=== PATIENT | female | born 1945 | race Caucasian/White ===

== ENCOUNTER 2016-06-06 10:42 | Outpatient (CLI) ==
[2016-06-06 11:08] LABS: CREATININE 0.67 mg/dL (0.60-1.30)
== END 2016-06-06 10:43 | disposition home or self-care (01) ==
LOC: RAD 10:42
PROVIDERS: ATTEND Internal Medicine Gastroenterology
DX: R93.2 Abnormal findings on diagnostic imaging of liver and biliary tract (principal)
CPT/HCPCS: 36415; 82565

== ENCOUNTER 2016-06-07 07:07 | Outpatient (CLI) ==
--- NOTE | 2016-06-07 09:30 | MRI ---
EXAM: MRI abdomen without and with contrast HISTORY: Abnormal ultrasound TECHNIQUE: Multiplanar, multisequence without and following the administration of intravenous Omnis can, 9 mL using a dynamic contrast enhanced hepatic protocol. COMPARISON: Abdominal sonogram from 04/26/2016 FINDINGS: The heart is incompletely imaged. No pericardial or pleural effusions are evident. No h iatus hernia is appreciated. There is no evidence of hepatic steatosis. There is susceptibility artifact in the epigastric regio n and right upper quadrant ventral abdominal wall soft tissues. There is a small lesion in the righ t posterior hepatic lobe measuring 12.6 mm. This has decreased T1 signal and increased T2 signal. The lesion has rapid arterial enhancement that persists on delayed images. No other hepatic lesions are appreciated. The portal and hepatic veins are patent. The gallbladder is surgically absent. N o intrahepatic biliary dilatation is appreciated. The common bile duct is dilated to 10.5 mm. The pancreas and adrenal glands are grossly normal. The spleen has normal size and signal intensity. A simple cyst is noted at the interpolar region of the right kidney. The kidneys are otherwise jose david l. The visible intestines have normal signal caliber. The abdominal aorta has normal caliber and f low signal. The gallbladder is surgically absent. There is no biliary dilatation. The bone marrow signal intensity is maintained. IMPRESSION: 1. Hepatic hemangioma, right posterior hepatic lobe corresponding to the lesion on ultrasound. 2. Simple cyst, interpolar region of the right kidney. 3. Postsurgical changes in the ventral abdominal wall. 4. Previous cholecystectomy with extrahepatic biliary dilatation.
== END 2016-06-07 07:08 | disposition home or self-care (01) ==
LOC: RAD 07:07
PROVIDERS: ATTEND Internal Medicine Gastroenterology
DX: R93.2 Abnormal findings on diagnostic imaging of liver and biliary tract (principal)

== ENCOUNTER 2016-06-16 09:00 | Outpatient (RCR) ==
--- NOTE | 2016-05-31 13:08 | RS.OPPTEV2 ---
Date of Note: 05/31/16 Visit #: 1 Date of Evaluation: 05/31/16 Payer Source: MEDICARE Date of Onset/Injury/Change in Status: 04/30/16 Surgery Performed?: No Treatment Diagnosis: Neck pain History of Condition/Mechanism of Injury:: Injury to the neck ~ 11 yrs ago and had cervical fusion of C4-C5. She has done very well wthout limitation until a month ago when she had loss of sensation of B hands L > R. The sensation loss is in the tips of her fingers on the right and the entire palmar surface of the left hand in all digits. She has started dropping things and having difficulty with many tasks. She is having neck pain right side greater than left which is mainly occurring at night causing difficulty sleeping due to the pain. She awakens due to pain 2-3 X/night. Driving is also an activity that causes neck pain to begin. Prior Level of Function.....Patient was independent with: ADL's, Self Care, Work /Vocation, Caregiving, Ambulation/Mobility, Community Integration/Access Functional Limitations: Sleep, Self Care, ADL's, Lifting, Carrying Current Subjective/complaints:: I do not know what cuased this to happen but I had a terrible April 2016. I had the flu terribly for 2 wks after geting the flu shot. The next wk I had sinusitus and bronchitis with a great deal of coughing. Following that I had jaw pain adn had to have 6 teeth pulled due to severe infection in my jaw. She had 3 courses of antibiotics in the month of April. Treatment Side (optional): Bilateral Medical History Medical History: Hypertension, Arthritis, Other Medical History Comments:: Chronic anemic Surgical History: Cholecystectomy Surgical History Comments:: ACF C4-C5 ~ 11 yrs ago, Cardiac stents and left carotid endarterectomy with stent placement ~ 7-8 yrs ago. Smoking Status: Current every day smoker Pain Assessment - Pain Description Pain Location: Neck pain on right Pain Description: Aching, Acute Pain Description: Deep ache Current Pain Intensity: 0/10 Worst Pain Intensity: 8/10 Other Comments regarding Pain:: Pain is usually when sleeping and/or driving. Functional Outcome Measure Neck Disability Index: 13 (26% disability) - G Codes & Severity Modifier G Codes & Modifier: Current - Carrying, Moving & Handling Objects - CJ. Goal - CI Source of G Code score: Neck Disability Index Observation - Observation Posture: Rounded Shoulders Handedness: Right General Muscle Strength: RUE 4+/5. LUE 4-/5 - Strength Cervical Extension: 5 Normal Cervical Flexion: 4+ Good + Cervical Lateral Flexion: 4- Good- - Special Tests Foraminal Distraction: Negative Foraminal Compression: Negative Left, Negative Right Wrist ROM: Bilaterally WFL's Wrist Muscle Strength: Bilaterally WFL's - Special Tests Tinel Test: Negative Left Phalen's Test: Negative Left Image Scientist Strength Left Hand Image Scientist Strength: 30# Right Hand Image Scientist Strength: 35# Palpation Palpation Findings: None/Normal Sensation - Sensation Right Upper Extremity: Impaired (Shooting electircal sensations of B arms and in the thoracic spine occasionally iwth roational motions.) Left Upper Extremity: Impaired Sensation Description: Numbness Coordination - Tests Bilateral Finger to Nose: Normal/Intact Interventions - Exercise/Activities/Manual Therapy Exercises/Activities: NA Manual Therapy: NA - Charges Total Direct Minutes: 45 Total Treatment Time: 45 Procedures billed for this date of service:: PT Eval Assessment Assessment: Progressive BUE weakening and loss of sensation in the hands. LUE weakness and B quality associate strength weakness. Her sleep and ability to perform daily tasks are being compromised. Patient Education: Education of diagnosis, Body/Joint mechanics, Activity Modification, Education of Plan of Care Rehab Potential: Good Short Term Goals Goal #1: Patient is able to sleep 50% better from decreased pain Goal to be met by: 06/17/16 Goal #2: LUE strength 4/5 Goal to be met by: 06/17/16 Goal #3: Patient reports minimal return of sensation B hands Goal to be met by: 06/17/16 Goal #4: Patient is able to button clothes with min diffiuclty. Goal to be met by: 06/17/16 Correction Goals Goal #1: LUE strength 4+/5 Goal to be met by: 07/01/16 Goal #2: Increase B quality associate strength 10# each Goal to be met by: 07/01/16 Goal #3: Eliminate cervical pain complaints. Goal to be met by: 07/01/16 Goal #4: Independent with HEP Goal to be met by: 07/01/16 Plan - Treatment to be Provided Procedures: Therapeutic Exercises, Therapeutic Activity, Manual Therapy, Massage , Patient Education Modalities: Electrical Stimulation, Ultrasound/Phonophoresis, Class IV Laser, Cryotherapy, Hot Packs - Treatment Plan Frequency: 3 X week Duration: 4 weeks ORDER # VISITS AND/OR THROUGH DATE: 07/01/2016 - Treatment Code (1) Cervical radicular pain Comments: M54.12
--- NOTE | 2016-06-07 15:25 | RS.OPPTDN ---
Subjective Date of Note: 06/07/16 Visit #: 2 Date of Evaluation: 05/31/16 Payer Source: MEDICARE Treatment Diagnosis: Neck pain Current Subjective/complaints:: Patient says she does not have much neck pain, but has tingling to all fingers and has trouble with linoleum mechanic. Pain Assessment - Pain Description Pain Location: Neck pain on right Pain Description: Aching, Acute Pain Description: Deep ache Current Pain Intensity: 0/10 - Treatment Modality: Ultrasound Parameters/Method Applied: 0.4 w/cm2 x 10 mins bilateral cervical Ut (non- thermal due to ACF) Patient Position: Sitting - Heat/Cryotherapy Treatment: Hot Pack (15 mins cervical in sitting) Interventions - Exercise/Activities/Manual Therapy Exercises/Activities: NA Manual Therapy: Patient receives MT of STM and trigger work to bilateral UT. Patient also receives PROM/gentle stretching to SB and rotation. She performs shoulder shrugs and scap retraction. Total minutes of Manual Therapy: 16 - Charges Total Direct Minutes: 26 Total Treatment Time: 41 Procedures billed for this date of service:: hp, u/s, MT Assessment: Patient admits no real cervical pain, but radicular symptoms to both hands of tingling/numbness/and weakness. Luz Maria has a few trigger points to the bilateral UT, mostly R sided. She may benefit from manual cervical traction and hand strengthening. She admitted improved flexibility following today's session. Patient Education: Education of diagnosis, Body/Joint mechanics, Home Exercise Program, Home Safety, Activity Modification, Education of Plan of Care Short Term Goals Goal #1: Patient is able to sleep 50% better from decreased pain Goal to be met by: 06/17/16 Goal #2: LUE strength 4/5 Goal to be met by: 06/17/16 Goal #3: Patient reports minimal return of sensation B hands Goal to be met by: 06/17/16 Goal #4: Patient is able to button clothes with min diffiuclty. Goal to be met by: 06/17/16 [place] Guide Goals Goal #1: LUE strength 4+/5 Goal to be met by: 07/01/16 Goal #2: Increase B linoleum mechanic strength 10# each Goal to be met by: 07/01/16 Goal #3: Eliminate cervical pain complaints. Goal to be met by: 07/01/16 Goal #4: Independent with HEP Goal to be met by: 07/01/16 Plan PLAN OF CARE EXPIRES ON:: 07/01/16 ORDER # VISITS AND/OR THROUGH DATE: 07/01/2016 PLAN: Continue Plan of Care
--- NOTE | 2016-06-13 10:31 | RS.OPPTDN ---
Subjective Date of Note: 06/13/16 Visit #: 4 Date of Evaluation: 05/31/16 Payer Source: MEDICARE Treatment Diagnosis: Neck pain Current Subjective/complaints:: Patient states she cannot tell a difference yet in her pain. She says that she feels she is more tender to the L side of her neck than last week. She says she does have difficulty sleeping. She is a stomach and side sleeper and awakens many times due to pain. Pain Assessment - Pain Description Pain Location: Neck pain on right Pain Description: Aching, Acute Pain Description: Deep ache Current Pain Intensity: Pain is intermittent, but more tender to the L than R - Treatment Modality: Ultrasound Parameters/Method Applied: non thermal (0.4 w/cm2 3.3 mHz) bilaterally x 10 mins Treatment Area: bilateral UT Patient Position: Sitting - Heat/Cryotherapy Treatment: Hot Pack (20 mins to cervical in sitting) Interventions - Exercise/Activities/Manual Therapy Exercises/Activities: Patient receives gentle passive stretching for SB, Rotation, and levator scap. She performs isometric neck retraction 2/5, shoulder shrugs, retraction, and 1# wand for bilateral shoulder flexion WNL, and shoulder ABD bilaterally x 10. Total minutes of Exercise: 16 Manual Therapy: na - Charges Total Direct Minutes: 26 Total Treatment Time: 41 Procedures billed for this date of service:: hp, u/s, EX Assessment: Patient continues with mild to moderate intermittent neck pain. Tenderness noted during u/s to bilateral UT, more so to the L than R. Patient did have only slight relief from treatment today. She demonstrates normal shoulder flexion, but ache to L shoulder abd beyond 90 degrees. Patient Education: Education of diagnosis, Body/Joint mechanics, Home Exercise Program, Home Safety, Activity Modification, Education of Plan of Care Patient demonstrates compliance with HEP?: Yes Short Term Goals Goal #1: Patient is able to sleep 50% better from decreased pain Goal to be met by: 06/17/16 Goal #2: LUE strength 4/5 Goal to be met by: 06/17/16 Goal #3: Patient reports minimal return of sensation B hands Goal to be met by: 06/17/16 Goal #4: Patient is able to button clothes with min diffiuclty. Goal to be met by: 06/17/16 Programmer Analyst Consultant Goals Goal #1: LUE strength 4+/5 Goal to be met by: 07/01/16 Goal #2: Increase B quality control specialist strength 10# each Goal to be met by: 07/01/16 Goal #3: Eliminate cervical pain complaints. Goal to be met by: 07/01/16 Goal #4: Independent with HEP Goal to be met by: 07/01/16 Plan PLAN OF CARE EXPIRES ON:: 07/01/16 ORDER # VISITS AND/OR THROUGH DATE: 07/01/2016 PLAN: Progress Exercises
--- NOTE | 2016-06-16 13:01 | RS.OPPTDN ---
Subjective Date of Note: 06/16/16 Visit #: 5 Date of Evaluation: 05/31/16 Payer Source: MEDICARE Treatment Diagnosis: Neck pain Current Subjective/complaints:: Patient states she has not had any change in her pain level. Reports continued pain at both sides of the neck. Pain Assessment - Pain Description Pain Location: Neck pain on right Pain Description: Aching, Acute Pain Description: Deep ache Current Pain Intensity: Pain is intermittent, but more tender to the L than R - Treatment Modality: Electrical Stim Unattended Parameters/Method Applied: 4 small pads hivolt x 20 mins @ 180 pk volts Patient Position: Sitting - Heat/Cryotherapy Treatment: Hot Pack (cervical with estim) Interventions - Exercise/Activities/Manual Therapy Exercises/Activities: Patient receives gentle passive stretching for SB, Rotation, and levator scap. She performs isometric neck retraction 2/5, isometric SB to L and R. shoulder shrugs, retraction, and 1# wand for bilateral shoulder flexion WNL, and shoulder ABD bilaterally x 10. Total minutes of Exercise: 17 Manual Therapy: na - Charges Total Direct Minutes: 17 Total Treatment Time: 37 Procedures billed for this date of service:: hp, estim (un), ex Assessment: Patient with unchanged pain level to the neck. Modified treatment to estim to verify any change. She says she has had some ache following estim to the neck, but otherwise gaudencio therex fine. Patient Education: Education of diagnosis, Body/Joint mechanics, Home Exercise Program, Home Safety, Activity Modification, Education of Plan of Care Patient demonstrates compliance with HEP?: Yes Short Term Goals Goal #1: Patient is able to sleep 50% better from decreased pain Goal to be met by: 06/17/16 Goal #2: LUE strength 4/5 Goal to be met by: 06/17/16 Goal #3: Patient reports minimal return of sensation B hands Goal to be met by: 06/17/16 Goal #4: Patient is able to button clothes with min diffiuclty. Goal to be met by: 06/17/16 Program Engagement Director Goals Goal #1: LUE strength 4+/5 Goal to be met by: 07/01/16 Goal #2: Increase B enlisted advisor strength 10# each Goal to be met by: 07/01/16 Goal #3: Eliminate cervical pain complaints. Goal to be met by: 07/01/16 Goal #4: Independent with HEP Goal to be met by: 07/01/16 Plan PLAN OF CARE EXPIRES ON:: 07/01/16 ORDER # VISITS AND/OR THROUGH DATE: 07/01/2016 PLAN: Progress Exercises (continue with estim)
--- NOTE | 2016-06-20 08:28 | RS.CXNS ---
Date of scheduled appointment: 06/20/16 Type: Cancel Reason for Cancel/NS: Out of town with her son.
--- NOTE | 2016-06-20 13:24 | RS.OPPTDN ---
Subjective Date of Note: 06/09/16 Visit #: 3 Date of Evaluation: 05/31/16 Payer Source: MEDICARE Treatment Diagnosis: Neck pain Current Subjective/complaints:: She says treatment feels good temporarily, but nothing lasting past session. Reports continued tingling/numbness to the UE's. Pain Assessment - Pain Description Pain Location: Neck pain on right Pain Description: Aching, Acute Pain Description: Deep ache - Treatment Modality: Ultrasound Parameters/Method Applied: 0.4 w/cm2 x 10 mins to bilateral UT Patient Position: Sitting - Heat/Cryotherapy Treatment: Hot Pack (20 mins cervical in sitting) Interventions - Exercise/Activities/Manual Therapy Exercises/Activities: NA Manual Therapy: Patient receives MT of STM and trigger work to bilateral UT. Patient also receives PROM/gentle stretching to SB and rotation. She performs shoulder shrugs and scap retraction. - Charges Total Direct Minutes: 25 Total Treatment Time: 40 Procedures billed for this date of service:: hp, u/s, ex Assessment: Patient continues with radicular symptoms bilateral UE, but unable to use cervical traction due to cspine fusion. She may benefit from manual traction/occipital release and gentle stretching as well as hand strengthening exercises. Patient Education: Education of diagnosis, Body/Joint mechanics, Home Exercise Program, Home Safety, Activity Modification, Education of Plan of Care Patient demonstrates compliance with HEP?: Yes Short Term Goals Goal #1: Patient is able to sleep 50% better from decreased pain Goal to be met by: 06/17/16 Goal #2: LUE strength 4/5 Goal to be met by: 06/17/16 Goal #3: Patient reports minimal return of sensation B hands Goal to be met by: 06/17/16 Goal #4: Patient is able to button clothes with min diffiuclty. Goal to be met by: 06/17/16 Ground Wirer Goals Goal #1: LUE strength 4+/5 Goal to be met by: 07/01/16 Goal #2: Increase B class c driver strength 10# each Goal to be met by: 07/01/16 Goal #3: Eliminate cervical pain complaints. Goal to be met by: 07/01/16 Goal #4: Independent with HEP Goal to be met by: 07/01/16 Plan PLAN OF CARE EXPIRES ON:: 07/01/16 ORDER # VISITS AND/OR THROUGH DATE: 07/01/2016 PLAN: Progress Exercises
== END 2016-06-21 ==
PROVIDERS: ATTEND General Practice
DX: M54.2 Cervicalgia (principal); R20.8 Other disturbances of skin sensation

== ENCOUNTER 2016-07-01 11:00 | Outpatient (RCR) ==
--- NOTE | 2016-06-23 16:40 | RS.OPPTDN ---
Subjective Date of Note: 06/23/16 Visit #: 6 Date of Evaluation: 05/31/16 Payer Source: MEDICARE Treatment Diagnosis: Neck pain Current Subjective/complaints:: Patient reports increase in pain to the neck after her last session. She says she had a HARDEN as well in which she does not have often. Remains with numbness to the fingers. She says she did have a NCV and it was negative. Pain Assessment - Pain Description Pain Location: Neck pain on right Pain Description: Deep ache Current Pain Intensity: Pain is intermittent, but more tender to the L than R - Treatment Modality: Ultrasound Parameters/Method Applied: non thermal 1.0 w/cm2 pulsed 20% x 12 mins to bilateral UT Patient Position: Sitting - Heat/Cryotherapy Treatment: Hot Pack (20 mins to cervical in sitting) Interventions - Exercise/Activities/Manual Therapy Exercises/Activities: NA Manual Therapy: Patient receives MT of STM and trigger work to bilateral UT. Patient also receives PROM/gentle stretching to SB and rotation. She performs shoulder shrugs and scap retraction. Total minutes of Manual Therapy: 15 - Charges Total Direct Minutes: 25 Total Treatment Time: 45 Procedures billed for this date of service:: hp, u/s, MT Assessment: Patient had elevated pain after last session trying estim. She had a HARDEN and continues to have radicular symptoms despite NCV. She did not have increased pain following session today in which we returned to pulsed u/s, but no better either. Patient Education: Education of diagnosis, Body/Joint mechanics, Home Exercise Program, Home Safety, Activity Modification, Education of Plan of Care Patient demonstrates compliance with HEP?: Yes Short Term Goals Goal #1: Patient is able to sleep 50% better from decreased pain Goal to be met by: 06/17/16 Goal #2: LUE strength 4/5 Goal to be met by: 06/17/16 Goal #3: Patient reports minimal return of sensation B hands Goal to be met by: 06/17/16 Goal #4: Patient is able to button clothes with min diffiuclty. Goal to be met by: 06/17/16 [facility] Goals Goal #1: LUE strength 4+/5 Goal to be met by: 07/01/16 Goal #2: Increase B filter tip inspector strength 10# each Goal to be met by: 07/01/16 Goal #3: Eliminate cervical pain complaints. Goal to be met by: 07/01/16 Goal #4: Independent with HEP Goal to be met by: 07/01/16 Plan PLAN OF CARE EXPIRES ON:: 07/01/16 ORDER # VISITS AND/OR THROUGH DATE: 07/01/2016 PLAN: Continue Plan of Care
--- NOTE | 2016-06-24 09:04 | RS.CXNS ---
Date of scheduled appointment: 06/24/16 Type: No Show
--- NOTE | 2016-06-27 14:37 | RS.OPPTDN ---
Subjective Date of Note: 06/27/16 Visit #: 7 Date of Evaluation: 05/31/16 Payer Source: MEDICARE Treatment Diagnosis: Neck pain Current Subjective/complaints:: Patient reports she is having more ache to her neck today. She says she also has had dizziness when she turns her head or looks up/down quickly. Denies med change, head congestion, or BP issues. She says she will see her MD next Monday. Pain Assessment - Pain Description Pain Location: Neck pain bilaterally, tingling to both hands, dizziness Pain Description: Aching Pain Description: Deep ache Current Pain Intensity: Pain is intermittent, but more tender to the L than R - Treatment Modality: Ultrasound Parameters/Method Applied: 1.5 w/cm2 @ 3.3 mHz x 10 mins bilateral UT more distally from the spine, then 1.0 pulsed more proximally due to hx of ACF. - Heat/Cryotherapy Treatment: Hot Pack (cervical x 20 mins sitting) Interventions - Exercise/Activities/Manual Therapy Exercises/Activities: NA Manual Therapy: Patient receives MT of STM and trigger work to bilateral UT. Patient also receives PROM/gentle stretching to SB and rotation. She performs shoulder shrugs and scap retraction. Total minutes of Manual Therapy: 15 - Charges Total Direct Minutes: 25 Total Treatment Time: 45 Procedures billed for this date of service:: hp, u/s, MT Assessment: Patient with recent increase in pain and new symptom of dizziness with cervical flexion and extension (quickly). She does not have any medication changes recently or any issues with BP. Patient was told to definitely address this at her next appointment Monday. Patient Education: Education of diagnosis, Body/Joint mechanics, Home Exercise Program, Home Safety, Activity Modification, Education of Plan of Care Patient demonstrates compliance with HEP?: Yes Short Term Goals Goal #1: Patient is able to sleep 50% better from decreased pain Goal to be met by: 06/17/16 Goal #2: LUE strength 4/5 Goal to be met by: 06/17/16 Goal #3: Patient reports minimal return of sensation B hands Goal to be met by: 06/17/16 Goal #4: Patient is able to button clothes with min diffiuclty. Goal to be met by: 06/17/16 Halfway Goals Goal #1: LUE strength 4+/5 Goal to be met by: 07/01/16 Goal #2: Increase B stem roller or crusher operator strength 10# each Goal to be met by: 07/01/16 Goal #3: Eliminate cervical pain complaints. Goal to be met by: 07/01/16 Goal #4: Independent with HEP Goal to be met by: 07/01/16 Plan PLAN OF CARE EXPIRES ON:: 07/01/16 ORDER # VISITS AND/OR THROUGH DATE: 07/01/2016 PLAN: Continue Plan of Care
--- NOTE | 2016-07-01 16:14 | RS.OPPTDN ---
Subjective Date of Note: 07/01/16 Visit #: 8 Date of Evaluation: 05/31/16 Payer Source: MEDICARE Treatment Diagnosis: Neck pain Current Subjective/complaints:: patient reports neck pain is the same. States heat and ultrasound give temporary benefit of her neck and upper back feeling more flexible. States her symptoms in her hands have not changed. States she sees Dr. Bowman on Monday and she is going to request an MRI and/or referral to a Neurologist. Pain Assessment - Pain Description Pain Location: Neck pain bilaterally, tingling to both hands, dizziness Pain Description: Aching Pain Description: Deep ache - Treatment Modality: Ultrasound Parameters/Method Applied: 1.5 w/cm2 pulsed X 12 mins throughout bilateral upper traps and paraspinals. Patient Position: Sitting - Heat/Cryotherapy Treatment: Hot Pack (X 15 mins to cervical spine in sitting) Interventions - Exercise/Activities/Manual Therapy Exercises/Activities: Reviewed HEP and postural awareness. Manual Therapy: Patient receives DTM to trigger points at bilateral UT. Patient also receives PROM/gentle stretching to SB and rotation. Total minutes of Manual Therapy: X14 mins HOME EXERCISE PROGRAM: Scapular retraction - Charges Total Direct Minutes: 26 mins Total Treatment Time: 41 mins Procedures billed for this date of service:: Hp, US, manual therapy Assessment: Patient finishes her plan of care today. She has had no resolutions of radiating symptoms. She is hoping for further testing and Neurology referral. Patient Education: Education of diagnosis, Body/Joint mechanics, Home Exercise Program, Home Safety, Activity Modification, Education of Plan of Care Patient demonstrates compliance with HEP?: Yes Short Term Goals Goal #1: Patient is able to sleep 50% better from decreased pain Goal to be met by: 06/17/16 Progress towards Goal:: Not Met Goal #2: LUE strength 4/5 Goal to be met by: 06/17/16 Progress towards Goal:: Not Met Goal #3: Patient reports minimal return of sensation B hands Goal to be met by: 06/17/16 Progress towards Goal:: Not Met Goal #4: Patient is able to button clothes with min diffiuclty. Goal to be met by: 06/17/16 Progress towards Goal:: Not Met [facility] Goals Goal #1: LUE strength 4+/5 Goal to be met by: 07/01/16 Progress towards goal: Not Met Goal #2: Increase B bag machine helper strength 10# each Goal to be met by: 07/01/16 Progress towards goal: Not Met Goal #3: Eliminate cervical pain complaints. Goal to be met by: 07/01/16 Progress towards goal: Not Met Goal #4: Independent with HEP Goal to be met by: 07/01/16 Progress towards goal: Met Plan PLAN OF CARE EXPIRES ON:: 07/01/16 ORDER # VISITS AND/OR THROUGH DATE: 07/01/2016 PLAN: Plan for Discharge
--- NOTE | 2016-07-28 08:39 | RS.OPPTDC ---
Date of Discharge: 07/01/16 Date of Evaluation: 05/31/16 Number of Visits: 8 Treatment Diagnosis: Neck pain Current Complaints/Gains: Pt was unable to receive lasting benefit from PT intervention for her neck pain. Pain Assessment - Pain Description Pain Location: Neck pain bilaterally, tingling to both hands, dizziness Pain Description: Aching Pain Description: Deep ache Current Pain Intensity: Pain is intermittent, but more tender to the L than R Functional Outcome Measure Neck Disability Index: 13 (26% disability) - G Codes & Severity Modifier G Codes & Modifier: Carrying, Moving & Handling: Goal - CI. D/C - CJ Source of G Code score: NDI Interventions - Exercise/Activities/Manual Therapy Exercises/Activities: NA Manual Therapy: NA - Charges Total Direct Minutes: na Total Treatment Time: na Procedures billed for this date of service:: na Assessment Assessment: Patient had poor response to PT attempts. She had relief at time of tx but by the time she returned home she had onset of neck pain again. No goals met other than I with HEP Short Term Goals Goal #1: Patient is able to sleep 50% better from decreased pain Goal to be met by: 06/17/16 Progress towards Goal:: Not Met Goal #2: LUE strength 4/5 Goal to be met by: 06/17/16 Progress towards Goal:: Not Met Goal #3: Patient reports minimal return of sensation B hands Goal to be met by: 06/17/16 Progress towards Goal:: Not Met Goal #4: Patient is able to button clothes with min diffiuclty. Goal to be met by: 06/17/16 Progress towards Goal:: Not Met Alf Goals Goal #1: LUE strength 4+/5 Goal to be met by: 07/01/16 Progress towards goal: Not Met Goal #2: Increase B conventional underwriter strength 10# each Goal to be met by: 07/01/16 Progress towards goal: Not Met Goal #3: Eliminate cervical pain complaints. Goal to be met by: 07/01/16 Progress towards goal: Not Met Goal #4: Independent with HEP Goal to be met by: 07/01/16 Progress towards goal: Met Plan Reason for Discharge:: Lack of Progress
== END 2016-07-19 ==
PROVIDERS: ATTEND General Practice
DX: M54.2 Cervicalgia (principal); R20.8 Other disturbances of skin sensation

== ENCOUNTER 2016-07-15 10:04 | Outpatient (CLI) ==
--- NOTE | 2016-07-15 23:22 | MRI ---
EXAM: Cervical spine MRI without contrast. HISTORY: Anesthesia of the skin. COMPARISON: Cervical spine radiographs 05/16/2016. TECHNIQUE: Multiplanar, multisequence MR images were acquired of the cervical spine without contras t. The study is degraded by decreased [id number] which produces decreased spatial and contrast resolution. FINDINGS: The craniocervical junction is unremarkable. There is decreased spatial and contrast reso lution. However, as visualized there is mild symmetric T2 hyperintensity along the dorsal columns i n the cervical cord from C2 to C6. 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 There is minor mid cervical dextroscoliosis and 1 mm retrolisth esis of C4 on C5. There has been an ACDF at C6-7 and metallic artifact is present consistent with a nterior screw plate fixation. There is solid osseous fusion. The cervical vertebra are normal in h eight and intrinsic bone marrow signal. There is minor cervical ventral spondylosis. Canal diamete r is developmentally narrow. There is a 2.1 cm AP by 1.6 cm TX by 2.4 cm CC hyperintense T2 signal lesion in the inferior left lo be of the thyroid gland that extends to the thoracic inlet. This has mildly heterogeneous intermedi ate dark T1, bright T2 signal and may represent a cyst or adenoma. Further evaluation is advised. C2-3: There is a minor posterior disc bulge and left hypertrophic facet arthropathy without foramin al stenosis or central canal stenosis. C3-4: There is mild disc bulge with a small disc extrusion that minimally indents the cervical cord . Ligamentum flavum hypertrophy and bilateral uncovertebral hypertrophy are present. There is mild spinal stenosis and mild bilateral foraminal stenosis. AP diameter of the thecal sac is 9 mm. C4-5: There is a mild disc bulge, ligamentum flavum hypertrophy and minor bilateral uncovertebral h ypertrophy. There is mild left hypertrophic facet arthropathy. These findings cause mild spinal st enosis and mild right neural foraminal stenosis. AP diameter of the thecal sac is 9.1 mm. C5-6: There is a mild disc bulge and minor bilateral uncovertebral hypertrophy and mild left hypert rophic facet arthropathy. There is mild spinal stenosis and minor right neural foraminal stenosis. AP diameter of the thecal sac is 9.3 mm. C6-7: There are postoperative ACDF changes. Right uncovertebral hypertrophy is present without cent ral canal stenosis or foraminal stenosis. C7-T1: The intervertebral disc is normal. IMPRESSION: 1. Unexpected result. Symmetric T2 hyperintensity is present in the dorsal columns of the cervical cord bilaterally from C2-C6. 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 Most commonly, this is due to vitamin B12 deficiency in the setting of anemia or ileal or gastric fundal resection. Copper deficiency may also produce a similar findin g. 2. Small central disc extrusion C3-4 that indents the cervical cord. 3. Mild spinal stenosis C3-4, C4-5 and C5-6. 4. Status post ACDF C6-7 with solid osseous fusion.
== END 2016-07-15 10:05 | disposition home or self-care (01) ==
LOC: RAD 10:04
PROVIDERS: ATTEND General Practice
DX: M54.2 Cervicalgia (principal); R20.0 Anesthesia of skin; R20.8 Other disturbances of skin sensation

== ENCOUNTER 2016-07-22 11:40 | Outpatient (CLI) ==
[2016-07-22 12:56] LABS: BASOPHILS % (AUTO) 0.4 % (0.0-3.0); EOSINOPHILS # (AUTO) 0.2 K/ul (0.0-0.7); EOSINOPHILS % (AUTO) 3.3 % (0.0-7.0); HEMATOCRIT 30.2 % (37.0-47.0); HEMOGLOBIN 8.1 g/dl (12.0-16.0); IMMATURE GRANULOCYTE % (AUTO) 0.2 % (0.0-5.0); LYMPHOCYTES # (AUTO) 1.5 K/uL (0.60-3.4); LYMPHOCYTES % (AUTO) 29.6 (10.0-50.0); MEAN CORPUSCULAR HEMOGLOBIN 21.4 pg (27.0-31.0); MEAN CORPUSCULAR HGB CONC 26.8 (31.8-35.4); MEAN CORPUSCULAR VOLUME 79.9 fl (81.0-99.0); MONOCYTES # (AUTO) 0.7 K/uL (0.4-2.0); MONOCYTES % (AUTO) 14.5 (0-10); NEUTROPHILS # (AUTO) 2.6 K/ul (2.0-6.9); PLATELET COUNT 335 10^3/uL (140-440); RED BLOOD COUNT 3.78 10^6/ul (4.20-5.40)
[2016-07-22 13:02] LABS: BILIRUBIN,URINE Negative (NEGATIVE); KETONES,URINE Negative (NEGATIVE); LEUKOCYTE ESTERASE ,URINE 1+ (NEGATIVE); NITRITE,URINE Negative (NEGATIVE); PH,URINE 5.5 (5-9); PROTEIN,URINE Trace (NEGATIVE); URINE, BLOOD Negative (NEGATIVE)
[2016-07-22 13:09] LABS: ANISOCYTOSIS 2+ (NOT PRESENT); HYPOCHROMASIA 1+ (NOT PRESENT); MICROCYTOSIS 1+ (NOT PRESENT); POLYCHROMASIA 1+ (NOT PRESENT)
[2016-07-22 13:10] LABS: ADD URINE MICROSCOPIC YES
[2016-07-22 13:12] LABS: ALBUMIN 3.4 g/dL (3.4-5.0); ALBUMIN/GLOBULIN RATIO 1.06; ANION GAP 14.2; BILIRUBIN,TOTAL 0.32 mg/dL (0.00-1.20); BUN/CREATININE RATIO 19.71; CALCIUM 9.2 mg/dL (8.2-10.2); CREATININE 0.71 mg/dL (0.60-1.30); POTASSIUM 4.2 mmol/L (3.5-5.10); TOTAL PROTEIN 6.6 g/dL (5.8-8.1)
[2016-07-22 13:16] LABS: BACTERIA,URINE 1+ (NOT PRESENT)
== END 2016-07-22 11:41 | disposition home or self-care (01) ==
LOC: LAB 11:40
PROVIDERS: ATTEND General Practice
DX: D64.9 Anemia, unspecified (principal); I10 Essential (primary) hypertension; M54.9 Dorsalgia, unspecified; M85.80 Other specified disorders of bone density and structure, unspecified site; E78.5 Hyperlipidemia, unspecified; Z79.899 Other long term (current) drug therapy
CPT/HCPCS: 36415; 80053; 80061; 81001; 85008; 85025; 87086

== ENCOUNTER 2016-07-27 16:38 | Outpatient (CLI) ==
[2016-08-01 15:15] LABS: ALKALINE PHOSPHATASE, S 151 IU/L (39-117)
[2016-08-02 07:30] LABS: INTESTINAL FRAC.: 0 % (0-18)
== END 2016-07-27 16:39 | disposition home or self-care (01) ==
LOC: LAB 16:38
PROVIDERS: ATTEND General Practice
DX: R74.8 Abnormal levels of other serum enzymes (principal)
CPT/HCPCS: 36415; 84075; 84080

== ENCOUNTER 2016-08-01 08:14 | Outpatient (CLI) ==
--- NOTE | 2016-08-01 09:34 | US ---
EXAM: Ultrasound thyroid. HISTORY: Thyroid nodule. COMPARISON: Cervical spine MRI 07/15/2016. TECHNIQUE: Don-scale and color Doppler images. FINDINGS: The right lobe of the thyroid measures 3.2 x 1.4 x 0.9 cm. There is homogeneous echogenicity without discrete nodule. The thyroid isthmus measures 0.3 cm. The left lobe of the thyroid measures 3.7 x 1.6 x 1.1 cm. Solid hyperechoic nodule in the inferior left lobe measures approximately 2.8 x 1.5 x 2 cm. No suspicious calcifications identified. IMPRESSION: Solid left thyroid nodule. Percutaneous sampling should be considered.
--- NOTE | 2016-08-01 09:39 | US ---
EXAMINATION: Transvaginal ultrasound of the pelvis. HISTORY: Unspecified condition associated with female genital organs and menstrual cycle. COMPARISON: None available. TECHNIQUE: Transvaginal ultrasound of the pelvis. Transvaginal images were obtained for better lucrecia omic detail. FINDINGS: The uterus measures 4.5 x 2.2 x 3.0 cm. The endometrial cavity is distended with fluid measuring 5 m m AP The endometrium measures approximately 4 mm. The right ovary measures 1.2 x 0.8 x 1.0 cm. The right ovary is unremarkable in appearance. The left ovary was unable to be visualized. Prominent left adnexal region vessels are incidentally noted. No free fluid is identified. IMPRESSION: Nonspecific endometrial canal fluid for which further evaluation is recommended. Unremarkable appearance of the right ovary and nonvisualization of the left ovary.
--- NOTE | 2016-08-05 09:56 | MAMMO ---
EXAM: Digital screening mammogram HISTORY: Screening COMPARISON: 08/09/2012 FINDINGS: Digital MLO and CC views of the right and left breast were performed. There are scatter ed fibroglandular densities. There are benign calcifications in the right breast. There is no eviden ce for mass, asymmetry, distortion, or suspicious calcifications in either breast. IMPRESSION: 1. No evidence of malignancy in the right or left breast. 2. Annual screening mammogram is recommended in one year. BIRADS category 2, benign
== END 2016-08-01 08:15 | disposition home or self-care (01) ==
LOC: RAD 08:14
PROVIDERS: ATTEND General Practice
DX: Z12.31 Encounter for screening mammogram for malignant neoplasm of breast (principal); E04.1 Nontoxic single thyroid nodule; N94.9 Unspecified condition associated with female genital organs and menstrual cycle

== ENCOUNTER 2016-09-06 08:08 | Outpatient (CLI) ==
[2016-09-06 08:47] LABS: HEMATOCRIT 30.3 % (37.0-47.0); HEMOGLOBIN 8.3 g/dl (12.0-16.0); MEAN CORPUSCULAR HGB CONC 27.4 (31.8-35.4); MEAN CORPUSCULAR VOLUME 76.7 fl (81.0-99.0); RED BLOOD COUNT 3.95 10^6/ul (4.20-5.40); WHITE BLOOD COUNT 4.01 K/ul (4.6-10.2)
[2016-09-06 09:39] LABS: ALBUMIN 3.5 g/dL (3.4-5.0); ALBUMIN/GLOBULIN RATIO 1.13; ANION GAP 12.2; BILIRUBIN,TOTAL 0.31 mg/dL (0.00-1.20); BUN/CREATININE RATIO 15.87; CALCIUM 9.1 mg/dL (8.2-10.2); CREATININE 0.63 mg/dL (0.60-1.30); FOLATE 17.2 ng/mL (3.1-20.5); POTASSIUM 4.2 mmol/L (3.5-5.10); TOTAL PROTEIN 6.6 g/dL (5.8-8.1)
== END 2016-09-06 08:09 | disposition home or self-care (01) ==
LOC: LAB 08:08
PROVIDERS: ATTEND Internal Medicine Hematology & Oncology
DX: D64.9 Anemia, unspecified (principal)
CPT/HCPCS: 36415; 80053; 82525; 82607; 82746; 83540; 83550; 85027

== ENCOUNTER 2016-11-10 15:59 | Outpatient (CLI) ==
[2016-11-16 17:40] LABS: IGG P18 AB Absent (.); IGG P23 AB Absent (.); IGG P28 AB Absent (.); IGG P30 AB Absent (.); IGG P39 AB Absent (.); IGG P41 AB Present (.); IGG P45 AB Absent (.); IGG P58 AB Absent (.); IGG P66 AB Absent (.); IGG P93 AB Absent (.); IGM P39 AB Absent (.); IGM P41 AB Absent (.)
[2016-11-17 08:39] LABS: LYME IGG WB INTERP Negative (.); LYME IGM WB INTERP Negative (.)
== END 2016-11-10 16:00 | disposition home or self-care (01) ==
LOC: LAB 15:59
PROVIDERS: ATTEND General Practice
DX: R20.0 Anesthesia of skin (principal)
CPT/HCPCS: 36415; 86617

== ENCOUNTER 2016-11-17 16:41 | Outpatient (CLI) | END 2016-11-17 16:42 | disposition home or self-care (01) | LOC: LAB 16:41 | PROVIDERS: ATTEND General Practice | DX: R20.0 Anesthesia of skin (principal) | CPT/HCPCS: 36415; 86617 ==

== ENCOUNTER 2016-11-24 09:32 | Outpatient (CLI) ==
[2016-11-24 10:26] LABS: HEMATOCRIT 42.6 % (37.0-47.0); HEMOGLOBIN 13.5 g/dl (12.0-16.0); MEAN CORPUSCULAR HEMOGLOBIN 29.3 pg (27.0-31.0); MEAN CORPUSCULAR HGB CONC 31.7 (31.8-35.4); MEAN CORPUSCULAR VOLUME 92.6 fl (81.0-99.0); RED BLOOD COUNT 4.6 10^6/ul (4.20-5.40); WHITE BLOOD COUNT 4.33 K/ul (4.6-10.2)
[2016-11-24 10:53] LABS: ALBUMIN 3.9 g/dL (3.4-5.0); ALBUMIN/GLOBULIN RATIO 1.34; ANION GAP 11.1; BILIRUBIN,TOTAL 0.25 mg/dL (0.00-1.20); BUN/CREATININE RATIO 21.62; CALCIUM 9.6 mg/dL (8.2-10.2); CREATININE 0.74 mg/dL (0.60-1.30); FOLATE 12.6 ng/mL (3.1-20.5); POTASSIUM 4.1 mmol/L (3.5-5.10); TOTAL PROTEIN 6.8 g/dL (5.8-8.1)
[2016-11-28 19:09] LABS: IGG P18 AB Absent (.); IGG P23 AB Absent (.); IGG P28 AB Absent (.); IGG P30 AB Absent (.); IGG P39 AB Absent (.); IGG P41 AB Present (.); IGG P45 AB Absent (.); IGG P58 AB Absent (.); IGG P66 AB Absent (.); IGG P93 AB Absent (.); IGM P39 AB Absent (.); IGM P41 AB Absent (.)
[2016-11-28 19:56] LABS: LYME IGG WB INTERP Negative (.); LYME IGM WB INTERP Negative (.)
== END 2016-11-24 09:33 | disposition home or self-care (01) ==
LOC: LAB 09:32
PROVIDERS: ATTEND Internal Medicine Hematology & Oncology
DX: R20.0 Anesthesia of skin (principal); D64.9 Anemia, unspecified
CPT/HCPCS: 36415; 80053; 82525; 82607; 82746; 83540; 83550; 85027; 86617

== ENCOUNTER 2016-12-13 07:12 | Outpatient (CLI) ==
--- NOTE | 2016-12-13 08:26 | US ---
EXAM: Ultrasound of the abdominal aorta. History: Abdominal pain. Technique: Multiple sonographic images through the abdominal aorta were obtained. Color duplex Dop pler was used to interrogate vascular flow. Findings: The proximal abdominal aorta measures 1.5 cm x 1.8 cm. The mid abdominal aorta measures 1.2 cm x 1.4 cm. The distal abdominal aorta measures 1.0 cm x 1.0 cm. The right common iliac artery measures 0.7 cm x 0.6 cm. The left common iliac artery measures 0.6 c m x 0.7 cm. There is atherosclerotic plaque within the abdominal aorta. Impression: No sonographic evidence for abdominal aortic aneurysm.
== END 2016-12-13 07:13 | disposition home or self-care (01) ==
LOC: RAD 07:12
PROVIDERS: ATTEND General Practice
DX: R09.89 Other specified symptoms and signs involving the circulatory and respiratory systems (principal)
CPT/HCPCS: 76775

== ENCOUNTER 2017-05-26 09:54 | Outpatient (CLI) | END 2017-05-26 09:55 | disposition home or self-care (01) | LOC: LAB 09:54 | PROVIDERS: ATTEND Internal Medicine Hematology & Oncology | DX: D64.9 Anemia, unspecified (principal) | CPT/HCPCS: 36415; 80053; 82525; 82607; 82746; 83540; 83550; 85027 ==

== ENCOUNTER 2017-06-09 09:24 | Outpatient (CLI) | END 2017-06-09 09:25 | disposition home or self-care (01) | LOC: LAB 09:24 | PROVIDERS: ATTEND Internal Medicine Hematology & Oncology | DX: D64.9 Anemia, unspecified (principal); Z79.899 Other long term (current) drug therapy | CPT/HCPCS: 36415; 80053; 80061; 81001; 82525; 82607; 82746; 83540; 83550; 85027 ==

== ENCOUNTER 2017-09-28 08:48 | Outpatient (CLI) | END 2017-09-28 08:49 | disposition home or self-care (01) | LOC: LAB 08:48 | PROVIDERS: ATTEND Internal Medicine Hematology & Oncology | DX: D50.9 Iron deficiency anemia, unspecified (principal) | CPT/HCPCS: 36415; 80053; 82525; 82607; 82746; 83540; 83550; 85025 ==

== ENCOUNTER 2017-10-06 12:53 | Outpatient (CLI) | END 2017-10-06 12:54 | disposition home or self-care (01) | LOC: FCC-LAB 12:53 | PROVIDERS: ATTEND General Practice | DX: D64.9 Anemia, unspecified (principal); I10 Essential (primary) hypertension; R20.0 Anesthesia of skin; Z79.899 Other long term (current) drug therapy | CPT/HCPCS: 36415; 80053; 80061; 81001; 85025 ==

== ENCOUNTER 2017-10-11 07:45 | Outpatient (CLI) ==
--- NOTE | 2017-10-11 08:14 | CT ---
Exam: CT of the chest without intravenous contrast. Comparison: 03/29/2016. Reason for exam: Cough. FINDINGS: Operative changes are seen after anterior cervical discectomy and fusion. There is marked emphysematous disease seen throughout the lung parenchyma. There is mild basilar atelectasis without pleural effusion, pneumothorax, or focal consolidation. There is patchy ground-glass in the right lung base. Atherosclerotic disease is seen within the aorta and distal arterial vasculature. The aorta is normal in course and caliber measuring 3.2 cm the level of the arch. The heart is not e nlarged. Image interpretation is limited by the lack of intravenous contrast administration. Vascular stent is seen in the upper thorax. Operative changes are seen in the upper abdomen after suspected mesh placement. Mediastinal lymph nodes are incompletely evaluated without intravenous contrast administration. Impression: 1. No acute imaging findings are seen within the thorax. 2. Diffuse emphysematous disease seen throughout the lung parenchyma. 3. Basilar atelectasis with patchy ground-glass in the right lung base.
== END 2017-10-11 07:46 | disposition home or self-care (01) ==
LOC: RAD 07:45
PROVIDERS: ATTEND General Practice
DX: R05 Cough (principal); D50.9 Iron deficiency anemia, unspecified; Z72.0 Tobacco use

== ENCOUNTER 2017-12-05 08:07 | Outpatient (CLI) | END 2017-12-05 08:08 | disposition home or self-care (01) | LOC: LAB 08:07 | PROVIDERS: ATTEND Internal Medicine Hematology & Oncology | DX: D50.9 Iron deficiency anemia, unspecified (principal) | CPT/HCPCS: 36415; 80053; 82525; 82607; 82746; 83540; 83550; 85027 ==

== ENCOUNTER 2018-02-09 16:36 | Outpatient (CLI) | END 2018-02-09 16:37 | disposition home or self-care (01) | LOC: FCC-LAB 16:36 | PROVIDERS: ATTEND General Practice | DX: D50.9 Iron deficiency anemia, unspecified (principal); I10 Essential (primary) hypertension; R63.4 Abnormal weight loss; Z72.0 Tobacco use; Z79.899 Other long term (current) drug therapy | CPT/HCPCS: 36415; 80053; 80061; 81001; 85025; 87086 ==

== ENCOUNTER 2018-02-21 08:15 | Outpatient (CLI) | END 2018-02-21 08:16 | disposition home or self-care (01) | LOC: LAB 08:15 | PROVIDERS: ATTEND Internal Medicine Hematology & Oncology | DX: D50.9 Iron deficiency anemia, unspecified (principal) | CPT/HCPCS: 36415; 80053; 82525; 82607; 82746; 83540; 83550; 85027 ==

== ENCOUNTER 2018-05-24 08:25 | Outpatient (CLI) | END 2018-05-24 08:26 | disposition home or self-care (01) | LOC: LAB 08:25 | PROVIDERS: ATTEND Internal Medicine Hematology & Oncology | DX: D50.9 Iron deficiency anemia, unspecified (principal) | CPT/HCPCS: 36415; 80053; 82525; 82607; 82728; 82746; 83540; 83550; 85027 ==

== ENCOUNTER 2018-08-01 08:03 | Outpatient (CLI) | END 2018-08-01 08:04 | disposition home or self-care (01) | LOC: RHC-LAB 08:03 | PROVIDERS: ATTEND General Practice | DX: D64.9 Anemia, unspecified (principal); I10 Essential (primary) hypertension; Z79.899 Other long term (current) drug therapy | CPT/HCPCS: 36415; 80053; 80061; 81001; 85025 ==

== ENCOUNTER 2018-08-17 10:01 | Outpatient (CLI) | END 2018-08-17 10:02 | disposition home or self-care (01) | LOC: LAB 10:01 | PROVIDERS: ATTEND Internal Medicine Hematology & Oncology | DX: D50.9 Iron deficiency anemia, unspecified (principal) | CPT/HCPCS: 36415; 80053; 82525; 82607; 82746; 83540; 83550; 85027 ==